=== PATIENT | female | born 2000 | race Caucasian/White ===

== ENCOUNTER 2025-01-23 15:18 | Outpatient (CLI) | payer OTHER, SELFPAY ==
--- NOTE | ~2025-01-23 | XR_ITS ---
EXAM/ PROCEDURE: XR cervical spine 4-5V - 01/23/2025 15:52 CDT HISTORY: 24 years old Female with Neck Pain Neck Pain COMPARISON: None available TECHNIQUE: Three view(s) FINDINGS/ IMPRESSION: There are no fractures or dislocations.Intervertebral disc spaces are within normal limits. Visualize d portion of lungs are clear. Reviewed, dictated and finalized at location A.
== END 2025-01-23 15:19 | disposition home or self-care (01) ==
LOC: MICIMG 15:31
PROVIDERS: PCP Chiropractor; Visit Provider Chiropractor
DX: M54.2 Cervicalgia (principal)
CPT/HCPCS: 72050